=== PATIENT | female | born 1970 | race Caucasian/White ===

== ENCOUNTER → 2017-12-31 | Outpatient (CLI) | payer OTHER ==
[~2017-12-31] MED LIST: CHLO50TA PO; NEBI10TA3 PO
[2017-12-31 15:04] LABS: ALANINE AMINOTRANSFERASE 35 U/L (12-78); ALBUMIN 3.4 g/dL (3.4-5.0); ANION GAP 8 mmol/L (5-15); CALCIUM 8.6 mg/dL (8.5-10.1); CHLORIDE 102 mmol/L (98-107)
[2017-12-31 15:07] LABS: ALKALINE PHOSPHATASE 73 U/L (45-117); BILIRUBIN,TOTAL 0.5 mg/dL (0.2-1.0); CREATININE 0.91 mg/dL (0.55-1.02); TOTAL PROTEIN 8.1 g/dL (6.4-8.2)
== END | disposition home or self-care (01) ==
LOC: STAR 13:55
PROVIDERS: ATTEND Surgery
DX: Z01.818 Encounter for other preprocedural examination (principal)
CPT/HCPCS: 36415; 80053

== ENCOUNTER 2018-01-04 09:05 | Day surgery (SDC) | payer OTHER ==
[~2018-01-04] VITALS: Ht 170.2 cm; Wt 100.5 kg
[~2018-01-04 09:05] MED LIST changes: +BUPIVACAINE/PF 0.5% ONE
[2018-01-04] MEDS ORDERED: LACTATED RINGERS 1,000 ML IV SCH (10:08)
[2018-01-04 10:18] VITALS: BP 152/107
[2018-01-04 10:28] LABS: HCG UR SG 1.023 (1.003-1.030)
[2018-01-04] MEDS ORDERED: LIDOCAINE-MPF 1%, 2ML INFIL ONE (10:30)
[2018-01-04] MEDS ORDERED: ACETAMINOPHEN 500 MG TABLET ONE ×2 (11:18→13:43)
[2018-01-04] MEDS ORDERED: GABAPENTIN 300 MG CAPSULE ONE ×2 (11:18→13:43)
[2018-01-04] MEDS ORDERED: SCOPOLAMINE PATCH, 1.5MG PATCH.TD72 TD ONE ×2 (11:18→13:43)
[2018-01-04] MEDS ORDERED: MIDAZOLAM 1 MG/ML, 2ML ONE (13:30)
[2018-01-04] MEDS ORDERED: FENTANYL PF 250 MCG/5ML ONE (13:31)
[2018-01-04] MEDS ORDERED: ROCURONIUM 10 MG/ML,10ML ONE (13:56)
[2018-01-04] MEDS ORDERED: ONDANSETRON 2MG/ML, 2ML ONE (13:56)
[2018-01-04] MEDS ORDERED: SUCCINYLCHOLINE 20 MG/ML, 10ML ONE (13:56)
[2018-01-04] MEDS ORDERED: PROPOFOL 10 MG/ML, 20ML ONE (13:56)
[2018-01-04] MEDS ORDERED: DEXAMETHASONE 4 MG/ML, 1ML ONE (13:56)
[2018-01-04] MEDS ORDERED: BUPIVACAINE/PF-EPI 0.5% 1:200K IM ONE (14:23)
[2018-01-04] MEDS ORDERED: SUGAMMADEX 200 MG/2 ML IVPush ONE ×2 (14:25→14:30)
[2018-01-04] MEDS ORDERED: hydrALAzine 20 MG/ML, 1ML ONE (14:46)
[2018-01-04] MEDS ORDERED: OXYcodone 5 MG/5 ML ORAL.SOL UDC ONE (14:47)
[2018-01-04] MEDS ORDERED: HYDROmorphone 2 MG/ML, 1ML ONE ×2 (14:47→15:37)
[2018-01-04] MEDS ORDERED: PROMETHAZINE 25 MG/ML, 1ML ONE (14:47)
[2018-01-04] MEDS: HYDROmorphone 1 MG/ML, 1ML IV PRN ×6 (14:52→15:44)
[2018-01-04] MEDS ORDERED: hydrALAzine 20 MG/ML, 1ML IV PRN (15:00)
[2018-01-04] MEDS ORDERED: PROMETHAZINE 25 MG/ML, 1ML IV PRN (15:00)
[2018-01-04] MEDS ORDERED: PROMETHAZINE 12.5 MG SUPP PR PRN (15:00)
[2018-01-04] MEDS ORDERED: MEPERIDINE/PF 25MG/0.5ML IVPush PRN (15:00)
[2018-01-04] MEDS ORDERED: LABETALOL 5MG/ML, 20ML IV PRN (15:00)
[2018-01-04] MEDS ORDERED: OXYcodone 5 MG/5 ML ORAL.SOL UDC PO PRN (15:00)
[2018-01-04] MEDS ORDERED: ALBUTEROL SULFATE 2.5 MG/3 ML NPPB PRN (15:00)
[2018-01-04] MEDS ORDERED: LORazepam 2 MG/ML, 1ML IVPush PRN (15:00)
[2018-01-04] MEDS ORDERED: FENTANYL PF 100 MCG/2ML IV PRN (15:00)
== END 2018-01-04 17:25 ==
LOC: OUT 09:05
PROVIDERS: ATTEND Surgery
DX: K80.10 Calculus of gallbladder with chronic cholecystitis without obstruction (principal); I10 Essential (primary) hypertension; F17.210 Nicotine dependence, cigarettes, uncomplicated; Z98.890 Other specified postprocedural states
CPT/HCPCS: 47562; 81025; 88304; J0330; J0360; J1100; J1170; J2250; J2405; J2550; J2704; J3010; J3490; J7120